=== PATIENT | female | born 1960 | race Caucasian/White ===

== ENCOUNTER 2018-07-18 21:43 | Emergency (ER) | payer MEDICAID, OTHER ==
[~2018-07-18] VITALS: Ht 154.9 cm; Wt 54.9 kg
--- NOTE | 2018-07-18 21:58 | NUR ---
CALLED FOR PT. NO RESPONSE
[2018-07-18] MEDS ORDERED: HYDROCODONE/APAP 5/325MG 1 EACH TABLET ONE (22:50)
[2018-07-18] MEDS ORDERED: HYDROCODONE/APAP 5/325MG 1 EACH TABLET PO ONE (23:00)
--- NOTE | 2018-07-19 | NUR ---
PT WAS PROVIDED WITH R SHOULDER SLING AND CARE AND INSTRUCTIONS PROVIDED TO THE PT AND THE FAMILY
--- NOTE | 2018-07-19 00:11 | NUR ---
Patient discharged to home in stable condition.RX & Written and verbal after care instructions given. Patient verbalizes understanding of instruction.
[2018-07-19 00:15] VITALS: BP 142/75
== END 2018-07-19 00:15 | disposition home or self-care (01) ==
LOC: ER 21:44
DX: S43.491A Other sprain of right shoulder joint, initial encounter (principal); Z88.8 Allergy status to other drugs, medicaments and biological substances; W01.0XXA Fall on same level from slipping, tripping and stumbling without subsequent striking against object, initial encounter; Y93.89 Activity, other specified; Y92.89 Other specified places as the place of occurrence of the external cause; Y99.8 Other external cause status
CPT/HCPCS: 73030-TC